=== PATIENT | female | born 1980 | race Caucasian/White ===

== ENCOUNTER 2022-05-27 14:45 | Outpatient (CLI) | payer OTHER ==
--- NOTE | 2022-05-29 16:52 | Mammography Report ---
DIGITAL SCREENING MAMMOGRAM WITH CAD, 05/27/2022 CLINICAL INFORMATION / INDICATION: Routine screening mammography. TECHNIQUE: Digital bilateral 2D mammography was obtained in the craniocaudal and mediolateral obliqu e projections. This examination was interpreted with the benefit of Computer-Aided Detection analysis . COMPARISON: None. The patient does not recall where prior mammograms were performed. FINDINGS: Breast Density: The breasts are heterogeneously dense, which may obscure small masses. No dominant mass, suspicious calcifications, or architectural distortion in either breast. IMPRESSION: No mammographic evidence of malignancy. Follow up recommendation: Routine yearly screening mammogram. BI-RADS Category 1: NEGATIVE A "normal" or negative report should not discourage follow up or biopsy of a clinically significant f inding. A written summary of these findings will be mailed to the patient. The patient will be entered into a mammography reporting system which will generate a reminder letter for the patient's next appointmen t at the appropriate interval. The [employer] recommends yearly mammograms starting at age 40 and continuing as l emily as a woman is in good health. Breast MRI is recommended for women with an approximate 20-25% or greater lifetime risk of breast cancer, including women with a strong family history of breast or ova angelica cancer or who have been treated for Hodgkin's disease. Signer Name: Marianne Rajput MD Signed: 05/29/2022 4:48 PM Workstation Name: [employer]
== END 2022-05-27 14:46 | disposition home or self-care (01) ==
LOC: MAMMO 14:45
PROVIDERS: ATTEND Internal Medicine
DX: Z12.31 Encounter for screening mammogram for malignant neoplasm of breast (principal)
CPT/HCPCS: 77067

== ENCOUNTER 2022-07-02 05:55 | Day surgery (SDC) | payer OTHER ==
[2022-07-02] MEDS ORDERED: CELECOXIB 200 MG CAP PO NR (06:00)
[2022-07-02] MEDS ORDERED: LACTATED RINGERS 1,000 ML IV SCH (06:00)
[2022-07-02] MEDS ORDERED: fentaNYL 100 MCG/2 ML INJ IV PRN (06:00)
[2022-07-02] MEDS ORDERED: SCOPOLAMINE TRANSDERMAL PATCH 72 HR TD NR (06:00)
[2022-07-02] MEDS ORDERED: MIDAZOLAM 2 MG/2 ML INJ IV NR (06:00)
[2022-07-02] MEDS ORDERED: GABAPENTIN 300 MG CAP PO NR (06:00)
[2022-07-02] MEDS ORDERED: ACETAMINOPHEN 500 MG TAB PO SCH (06:00)
[2022-07-02] MEDS ORDERED: VANCOMYCIN/NS 1 GM/250 ML 1 GM/250 ML BAG IV NR (07:00)
--- NOTE | 2022-07-02 07:06 | Anesthesia Consultation ---
<SAMANTHA BARON - Last Filed: 07/02/22 07:05> Anesthesia Consult and Med Hx Date of service: 07/02/22 - Airway Anesthetic Teeth Evaluation: Good ROM Head & Neck: Adequate Mental/Hyoid Distance: Adequate Mallampati Class: Class I Intubation Access Assessment: Probably Good - Pulmonary Exam CTA: Yes - Cardiac Exam Cardiac Exam: RRR - Pre-Operative Health Status ASA Pre-Surgery Classification: ASA1, ASA2 Proposed Anesthetic Plan: General Nerve Block: TAP - Pulmonary Hx Smoking: No Hx Respiratory Symptoms: No - Cardiovascular System Hx Hypertension: No Hx Cardia Arrhythmia: No - Central Nervous System Hx Neuromuscular Disorder: No Hx Psychiatric Problems: No - Endocrine Hx Renal Disease: No Hx Liver Disease: No Hx Thyroid Disease: No - Hematic Hx Anemia: Yes ("very slight") - Other Systems Hx Alcohol Use: No Hx Cancer: No - Additional Comments Anesthesia Medical History Comments: no GAC. No FHAC. <MACARIO GANDARA - Last Filed: 07/02/22 07:22> Anesthesia Consult and Med Hx - Pre-Operative Health Status ASA Pre-Surgery Classification: ASA1
--- NOTE | 2022-07-02 07:07 | Anesthesia Day of Surgery ---
Anesthesia Day of Surgery - Day of Surgery Patient Examined: Yes Patient H&P Reviewed: Yes Patient is NPO: Yes
[2022-07-02] MEDS ORDERED: ONDANSETRON 4 MG/2 ML INJ IV PRN (07:22)
[2022-07-02] MEDS ORDERED: oxyCODONE /ACETAMINOPHEN 5-325MG TAB PO PRN (07:22)
[2022-07-02] MEDS ORDERED: HYDROmorphone 0.5 MG/0.5 ML INJ IV PRN (07:22)
[2022-07-02] MEDS ORDERED: ROCURONIUM 50 MG/5 ML INJ IV ONE (07:25)
[2022-07-02] MEDS ORDERED: SUCCINYLCHOLINE CHLORIDE 200 MG/10 ML INJ MDV ONE (07:25)
[2022-07-02] MEDS ORDERED: HYDROmorphone 1 MG/1 ML INJ ONE (07:25)
[2022-07-02] MEDS ORDERED: BUPIVACAINE-EPINEPHRINE/PF 0.25%-1:200,000 (30 ML) VIAL INFILTRATI ONE (07:25)
[2022-07-02] MEDS ORDERED: dexAMETHasone 4 MG/ML VIAL ONE (07:25)
[2022-07-02] MEDS ORDERED: LIDOCAINE MPF (2%) 20 MG/1 ML VIAL 5 ML ONE (07:25)
[2022-07-02] MEDS ORDERED: dexAMETHasone 20 MG/5 ML VIAL ONE (07:25)
[2022-07-02] MEDS ORDERED: ePHEDrine SULFATE 50 MG/1 ML INJ ONE (07:26)
[2022-07-02] MEDS ORDERED: propofoL 200 MG/20 ML VIAL IV ONE (07:26)
[2022-07-02] MEDS ORDERED: BUPIVACAINE/PF (0.5%) 5 MG/1 ML 30 ML VIAL INFILTRATI ONE (07:44)
[2022-07-02] MEDS ORDERED: fentaNYL 100 MCG/2 ML INJ ONE (08:43)
[2022-07-02] MEDS ORDERED: SODIUM CHLORIDE 0.9% IRR 1,500 ML BOTTLE IR ONE (08:45)
--- NOTE | 2022-07-02 10:29 | Short Stay Summary ---
Short Stay Documentation Date of service: 07/02/22 - History Principal diagnosis: ventral and umbilical hernia H&P: obtained from office - Allergies and Medications Current Medications: Allergies Penicillins Allergy (Verified 06/24/22 18:33) Anaphylaxis pineapple Allergy (Verified 06/24/22 18:33) Anaphylaxis seafood Allergy (Uncoded 06/24/22 18:33) Anaphylaxis Home Medications Medication Instructions Recorded Confirmed Last Taken Type Cholecalciferol (Vitamin D3) 125 mcg PO DAILY 06/24/22 06/24/22 Unknown History [Vitamin D3] Ferrous Sulfate [Feosol] 325 mg PO QDAY 06/24/22 06/24/22 Unknown History Active Medications Acetaminophen (Acetaminophen 500 Mg Tab) 1,000 mg PO PREOP JEROD Stop: 07/02/22 23:59 Last Admin: 07/02/22 07:00 Dose: 1,000 mg Celecoxib (Celecoxib 200 Mg Cap) 200 mg PO PREOP NR Stop: 07/02/22 23:59 Last Admin: 07/02/22 07:00 Dose: 200 mg Fentanyl (Fentanyl 100 Mcg/2 Ml Inj) 100 mcg IV ONCE PRN PRN Reason: sedation for nerve block Stop: 07/02/22 23:59 Last Admin: 07/02/22 07:36 Dose: 100 mcg Gabapentin (Gabapentin 300 Mg Cap) 300 mg PO PREOP NR Stop: 07/02/22 23:59 Last Admin: 07/02/22 07:00 Dose: 300 mg Hydromorphone HCl (Hydromorphone 0.5 Mg/0.5 Ml Inj) 0.5 mg IV Q10MIN PRN PRN Reason: Pain , Severe (7-10) Stop: 07/02/22 20:00 Vancomycin HCl (Vancomycin/Ns 1 Gm/250 Ml) 1 gm in 250 mls @ 167.007 mls/hr IV PREOP NR; Protocol Stop: 07/02/22 21:00 Last Admin: 07/02/22 07:30 Dose: 167.007 mls/hr Lactated Ringer's (Lactated Ringers) 1,000 mls @ 100 mls/hr IV DIRECT JEROD Stop: 07/02/22 23:59 Last Admin: 07/02/22 07:10 Dose: 100 mls/hr Midazolam HCl (Midazolam 2 Mg/2 Ml Inj) 2 mg IV PREOP NR Stop: 07/02/22 23:59 Last Admin: 07/02/22 07:36 Dose: 2 mg Ondansetron HCl (Ondansetron 4 Mg/2 Ml Inj) 4 mg IV ONCE PRN PRN Reason: Nausea And Vomiting Stop: 07/02/22 12:00 Oxycodone/Acetaminophen (Oxycodone /Acetaminophen 5-325mg Tab) 1 tab PO ONCE PRN PRN Reason: Pain, Moderate (4-6) Stop: 07/02/22 12:00 Scopolamine (Scopolamine Transdermal Patch 72 Hr) 1 each TD PREOP NR Stop: 07/02/22 23:59 Last Admin: 07/02/22 07:00 Dose: 1 each - Brief post op/procedure progress note Date of procedure: 07/02/22 Pre-op diagnosis: ventral and umbilical hernia Post-op diagnosis: same Procedure: robotic assisted supraumbilical ventral and umbilical hernia repair with mesh Anesthesia: GETA, other (TAP block) Findings: <1 cm supraumbilical midline ventral hernia containing large amount of preperitoneal fat and <1cm umbilical hernia containing small amount of fat Repaired with one 14cm x 8 cm bard soft mesh Surgeon: MANUEL KENNEDY Bible Reader: MACI PETER Estimated blood loss: minimal Pathology: none Condition: stable - Hospital course Hospital course: Pt observed in PACU and discharged to home in stable condition when criteria met - Disposition Condition at discharge: Good Disposition: 01 HOME / SELF CARE / HOMELESS Short Stay Discharge Plan Activity: other (no heavy lifting for 6 weeks) Diet: regular Wound: open to air, per your surgeon's advice Additional Instructions: SEE PRINTED INSTRUCTIONS Follow up with: TAWANNA RAMOS MD [Primary Care Provider] - 7 Days MANUEL KENNEDY DO [Staff Physician] - 14 Days Prescriptions: Gabapentin 300 mg PO BID #6 cap Ibuprofen [Motrin] 800 mg PO Q8HR PRN #30 tablet PRN Reason: Pain, Moderate (4-6) HYDROcodone/APAP 5-325 [[place] 5/325] 1 each PO Q6HR PRN #20 tablet PRN Reason: Pain , Severe (7-10)
--- NOTE | 2022-07-02 10:55 | Operative Report ---
Operative Report Operative Report: Date of procedure: 07/02/22 Pre-op diagnosis: ventral and umbilical hernia Post-op diagnosis: same Procedure: robotic assisted supraumbilical ventral and umbilical hernia repair with mesh Anesthesia: JUANA, other (TAP block) Findings: <1 cm supraumbilical midline ventral hernia containing large amount of preperitoneal fat and <1cm umbilical hernia containing small amount of fat Repaired with one 14cm x 8 cm bard soft mesh Surgeon: MANUEL KENNEDY Penology Teacher: MACI PETER Estimated blood loss: minimal Pathology: none Condition: stable Hospital course: Pt observed in PACU and discharged to home in stable condition when criteria met Condition at discharge: Good Disposition: 01 HOME / SELF CARE / HOMELESS HPI and indication: 42-year-old female who presents to surgery clinic for evaluation of a bulge above the umbilicus. This bulge has been present for 1 year and had become larger and more symptomatic over the last 6 months. Exam revealed a partially reducible midline supraumbilical ventral hernia and a tiny reducible hernia at the umbilicus. Hernia repair was recommended. All risk, benefits, alternatives surgery discussed with patient questions answered. It was recommended that the hernia be repaired robotically. Alternatives such as open versus laparoscopic repair were also discussed. The patient was in agreement and consent obtained. Procedure in detail: The patient was identified in the preoperative area and taken back to the operating room and placed on the operating room table in supine position. After anesthesia was induced, both arms were tucked with all bony prominences padded appropriately. The abdomen was then prepped and draped in usual sterile fashion and a timeout was performed. The patient had a TAP block performed by anesthesia preoperatively. A shannon incision was made in the left upper quadrant at Ramirez's point through which a Veress needle was inserted. The Veress needle position was confirmed using the saline drop test and the abdomen insufflated to 15 mmHg without incident. A 5 mm incision was made in the left upper quadrant through which a 5 mm Optiview trocar was placed under direct visualization. The abdomen was inspected and there was no underlying injury to any of the abdominal structures. The Veress needle was identified and removed. An 8 mm robotic trocar was placed in the left lateral abdomen and an 8 mm robotic trocar in the left lower quadrant under direct visualization. The 5 mm left upper quadrant trocar was replaced with an 8 mm robotic trocar under direct visualization. The patient was tilted to the right and the robot docked. A fenestrated bipolar was placed in arm #2 and a monopolar scissor in arm #4. The surgeon was then transferred to the console. I started by creating a preperitoneal flap to the left of the hernia. The peritoneum was scored to the left of the hernia defect using a monopolar scissor and a preperitoneal plane developed in an avascular plane. Using a combination of blunt dissection and cautery the plane superior to and inferior to the hernia was developed. There was a large amount of preperitoneal fat incarcerated in the hernia which was carefully dissected and reduced. The dissection was carried down inferiorly and the umbilical hernia was identified and a small amount of preperitoneal fat was reduced. I then carried my preperitoneal dissection to the right aspect of the hernia defect in order to accommodate mesh placement. Once the dissection was complete the pocket was checked for hemostasis. The supraumbilical ventral hernia defect measured 0.7 cm and the umbilical defect measured 0.5 cm. They were approximately 4-5 cm apart. It was decided to fix the hernia with a 14cm x 8 cm Bard soft mesh. The mesh along with suture material placed into the abdomen by the commercial lines assistant. First the hernia defect was closed using a 0 VLoc running stitch. The pressure in the abdomen was turned down to 8 mmHg. The mesh was then placed in the preperitoneal space and centered. The mesh was sutured into place in all 4 quadrants using interrupted 2-0 Vicryl stitches. The mesh laid flat in the preperitoneal space with adequate overlap of the hernia. The peritoneum was approximated using 3 0 VLoc running stitch x2. All sharp and suture material was removed under direct visualization by the commercial lines assistant. The robot was undocked. The abdomen was desufflated and all ports removed. The skin incisions were closed with 4-0 Monocryl subcuticular stitches and skin glue. A 4 x 4 gauze was balled up and placed at the site of the supraumbilical hernia and secured with a Tegaderm. At the end of the case, all sponge, instrument, sharp counts were correct 2. An abdominal binder was applied to the patient. The patient was awoken from anesthesia, extubated and taken to PACU in stable condition.
--- NOTE | 2022-07-02 11:42 | Post Anesthesia Evaluation ---
- Post Anesthesia Evaluation Patient Participated: Yes Airway Patent: Yes Stable Respiratory Function: Yes Nausea/Vomiting: No Temp > 96.8F: Yes Pain Manageable: Yes Adequeate Hydration: Yes Anesthesia Complications: No
[2022-07-02 12:10] VITALS: BP 116/64
== END 2022-07-02 12:05 | disposition home or self-care (01) ==
LOC: OR 05:55
PROVIDERS: ATTEND Surgery
DX: K43.6 Other and unspecified ventral hernia with obstruction, without gangrene (principal); K42.0 Umbilical hernia with obstruction, without gangrene; D64.9 Anemia, unspecified; Z88.0 Allergy status to penicillin; Z79.899 Other long term (current) drug therapy; Z91.013 Allergy to seafood; Z90.49 Acquired absence of other specified parts of digestive tract; Z98.891 History of uterine scar from previous surgery
CPT/HCPCS: 49653; 64488; 81025; C1781; J0330; J1100; J1170; J2250; J2405; J2704; J3010; J3370; J3490; J7120; S2900; 64450